=== PATIENT | male | born 1995 | race Caucasian/White ===

== ENCOUNTER → 2016-12-04 | Outpatient (CLI) | payer BC ==
[~2016-12-04] MED LIST: ASPIRIN81 MG PO; DOSS PO; PERCOCET 5-3251 EACH PO; PHENERGAN 12.12.5 M1 PO
== END ==
LOC: KOH-I 14:00
DX: K40.90 Unilateral inguinal hernia, without obstruction or gangrene, not specified as recurrent (principal); N50.82 Scrotal pain
CPT/HCPCS: 76870